=== PATIENT | female | born 1990 | race African-American/Black ===

== ENCOUNTER 2017-09-29 13:10 | Emergency (ER) | payer SELFPAY ==
[2017-09-29 13:22] VITALS: BP 133/87
[2017-09-29] MEDS ORDERED: Sodium Chloride 0.9% 1,000 ML IV ONE (13:35)
[2017-09-29] MEDS ORDERED: Ondansetron 4 MG/2 ML SDV IVPUSH ONE ×2 (13:35→18:29)
--- NOTE | 2017-09-29 13:43 | EDM.PDOC ---
ED HPI GENERAL MEDICAL PROBLEM - General Chief Complaint: Gastrointestinal Problem Stated Complaint: VOMITING X 2HRS Time Seen by Provider: 09/29/17 13:26 Source of Information: Reports: Patient History Limitations: Reports: No Limitations - History of Present Illness INITIAL COMMENTS - FREE TEXT/NARRATIVE: The patient states that she developed vomiting and watery diarrhea around 10:30 this morning. She is now dry heaving. She complains of abdominal cramps. No headache. No recent fever. No recent spoiled food. No similarly ill contacts. No recent travel. No recent antibiotics. No prior similar symptoms. The patient did not try any home medications or remedies prior to coming to the ED. The patient does not have a PCP. Chest Pain Score (Numeric/FACES): 9 - Related Data Allergies Allergy/AdvReac Type Severity Reaction Status Date / Time No Known Allergies Allergy Verified 11/07/15 02:19 Home Meds: Home Meds Ondansetron [Zofran ODT] 1 tab PO Q8H PRN #10 tab.dis 09/29/17 [Rx] Past Medical History Gastrointestinal History: Reports: Helicobacter Pylori [employer] History: Reports: Endocrine/Metabolic History: Reports: Obesity/BMI 30+ Hematologic History: Reports: Other (See Below) (Sickle cell trait) - Infectious Disease History Infectious Disease History: Reports: Chicken Pox - Past Surgical History GI Surgical History: Reports: Appendectomy Female Surgical History: Reports: Section (x 1) Social & Family History - Family History HEENT: Reports: Epistaxis Other HEENT Family History: brother OBGYN: Reports: Psychiatric: Reports: ADHD Other Psychiatric Family History: sister Hematologic: Reports: Sickle Cell Anemia Other Hematologic Family History: sickle cell - Tobacco Use Smoking Status *Q: Current Every Day Smoker Years of Tobacco use: 3 Packs/Tins Daily: 0.4 - Caffeine Use Caffeine Use: Reports: Energy Drinks, Soda - Alcohol Use Alcohol Use History: Yes Days Per Week of Alcohol Use: 1 Number of Drinks Per Day: 0 Total Drinks Per Week: 0 Alcohol Use Frequency: Socially - Recreational Drug Use Recreational Drug Use: No - Living Situation & Occupation Living situation: Reports: Single, with Significant Other, with Family (2 kids) Occupation: Employed ([employer]) ED ROS GENERAL - Review of Systems Review Of Systems: ROS reveals no pertinent complaints other than HPI. ED EXAM, GI/ABD - Physical Exam Exam: See Below Exam Limited By: No Limitations General Appearance: Alert, WD/WN, Mild Distress (dry heaving, hyperventilating) Eyes: Bilateral: Normal Appearance, EOMI Ears: Normal External Exam, Hearing Grossly Normal Nose: Normal Inspection, No Blood Throat/Mouth: Normal Inspection, Normal Lips, Normal Voice, No Airway Compromise Head: Atraumatic, Normocephalic Neck: Normal Inspection, Full Range of Motion Respiratory/Chest: No Respiratory Distress, Lungs Clear, Normal Breath Sounds, No Accessory Muscle Use Cardiovascular: Normal Peripheral Pulses, Regular Rate, Rhythm, No Edema, No Gallop, No JVD, No Murmur, No Rub GI/Abdominal Exam: Soft, No Organomegaly, No Distention, No Abnormal Bruit, No Mass, Tender (mild, generalized, with the greatest tenderness in the right upper quadrant), Other (Obese) (Female) Exam: Deferred Rectal (Female) Exam: Deferred Back Exam: Normal Inspection, Full Range of Motion. No: CVA Tenderness (L), CVA Tenderness (R) Extremities: Normal Inspection, Normal Range of Motion, No Pedal Edema, Normal Capillary Refill Neurological: Alert, Oriented, Normal Cognition, No Motor/Sensory Deficits Psychiatric: Normal Affect Skin Exam: Warm, Dry, Intact, Normal Color, No Rash Course - Vital Signs Last Recorded V/S: Last Vital Signs Temp 36.8 C 09/29/17 13:21 Pulse 107 H 09/29/17 13:21 Resp 20 09/29/17 13:21 BP 133/87 09/29/17 13:21 Pulse Ox 99 09/29/17 13:21 - Orders/Labs/Meds Orders: Active Orders 24 hr Category Date Time Status Abdomen Ltd [US] Stat Exams 09/29/17 14:26 Taken Abdomen Pelvis w Cont [CT] Stat Exams 09/29/17 16:06 Taken HCG QUALITATIVE,URINE [URCHEM] Stat Lab 09/29/17 14:30 Ordered UA W/MICROSCOPIC [URIN] Stat Lab 09/29/17 14:30 Ordered Labs: Laboratory Tests 09/29/17 09/29/17 09/29/17 Range/Units 13:40 13:40 14:30 WBC 9.32 (3.98-10.04) K/mm3 RBC 4.90 (3.98-5.22) M/mm3 Hgb 13.2 (11.2-15.7) gm/L Hct 39.2 (34.1-44.9) % MCV 80.0 (79.4-94.8) fl MCH 26.9 (25.6-32.2) pg MCHC 33.7 (32.2-35.5) g/dl RDW Std Deviation 41.4 (36.4-46.3) fL Plt Count 294 (182-369) K/mm3 MPV 9.7 (9.4-12.3) fl Neutrophils % (Manual) 90 H (40-60) % Band Neutrophils % 1 (0-10) % Lymphocytes % (Manual) 9 L (20-40) % Atypical Lymphs % 0 % Monocytes % (Manual) 0 L (2-10) % Eosinophils % (Manual) 0 L (0.7-5.8) % Basophils % (Manual) 0 L (0.1-1.2) Differential Comment See note Platelet Estimate Adequate RBC Morph Comment Normal Sodium 142 (136-145) mEq/L Potassium 3.9 (3.5-5.1) mEq/L Chloride 106 (98-107) mEq/L Carbon Dioxide 20 L (21-32) mEq/L Anion Gap 19.9 H (5-15) BUN 16 (7-18) mg/dL Creatinine 0.8 (0.55-1.02) mg/dL Est Cr Clr Drug Dosing 124.62 mL/min Estimated GFR (MDRD) > 60 (>60) mL/min BUN/Creatinine Ratio 20.0 H (14-18) Glucose 112 H (74-106) mg/dL Calcium 8.7 (8.5-10.1) mg/dL Total Bilirubin 0.6 (0.2-1.0) mg/dL AST 18 (15-37) U/L ALT 19 (14-59) U/L Alkaline Phosphatase 74 (46-116) U/L Total Protein 7.4 (6.4-8.2) g/dl Albumin 4.0 (3.4-5.0) g/dl Globulin 3.4 gm/dL Albumin/Globulin Ratio 1.2 (1-2) Lipase 111 (73-393) U/L Urine Color Tonie H (Yellow) Urine Appearance Slt cloudy H (Clear) Urine pH 6.0 (5.0-8.0) Ur Specific [place] 1.025 (1.005-1.030) Urine Protein 2+ H (Negative) Urine Glucose (UA) Negative (Negative) Urine Ketones 1+ H (Negative) Urine Occult Blood 3+ H (Negative) Urine Nitrite Negative (Negative) Urine Bilirubin Negative (Negative) Urine Urobilinogen 0.2 (0.2-1.0) Ur Leukocyte Esterase Trace H (Negative) Urine RBC >100 H (0-5) /hpf Urine WBC 5-10 H (0-5) /hpf Ur Epithelial Cells 0-5 (0-5) /hpf Urine Bacteria Rare (FEW) /hpf Urine Mucus Not seen (FEW) /hpf Urine Trichomonas Few Urine HCG, Qual (NEGATIVE) 09/29/17 Range/Units 14:30 WBC (3.98-10.04) K/mm3 RBC (3.98-5.22) M/mm3 Hgb (11.2-15.7) gm/L Hct (34.1-44.9) % MCV (79.4-94.8) fl MCH (25.6-32.2) pg MCHC (32.2-35.5) g/dl RDW Std Deviation (36.4-46.3) fL Plt Count (182-369) K/mm3 MPV (9.4-12.3) fl Neutrophils % (Manual) (40-60) % Band Neutrophils % (0-10) % Lymphocytes % (Manual) (20-40) % Atypical Lymphs % % Monocytes % (Manual) (2-10) % Eosinophils % (Manual) (0.7-5.8) % Basophils % (Manual) (0.1-1.2) Differential Comment Platelet Estimate RBC Morph Comment Sodium (136-145) mEq/L Potassium (3.5-5.1) mEq/L Chloride (98-107) mEq/L Carbon Dioxide (21-32) mEq/L Anion Gap (5-15) BUN (7-18) mg/dL Creatinine (0.55-1.02) mg/dL Est Cr Clr Drug Dosing mL/min Estimated GFR (MDRD) (>60) mL/min BUN/Creatinine Ratio (14-18) Glucose (74-106) mg/dL Calcium (8.5-10.1) mg/dL Total Bilirubin (0.2-1.0) mg/dL AST (15-37) U/L ALT (14-59) U/L Alkaline Phosphatase (46-116) U/L Total Protein (6.4-8.2) g/dl Albumin (3.4-5.0) g/dl Globulin gm/dL Albumin/Globulin Ratio (1-2) Lipase (73-393) U/L Urine Color (Yellow) Urine Appearance (Clear) Urine pH (5.0-8.0) Ur Specific [place] (1.005-1.030) Urine Protein (Negative) Urine Glucose (UA) (Negative) Urine Ketones (Negative) Urine Occult Blood (Negative) Urine Nitrite (Negative) Urine Bilirubin (Negative) Urine Urobilinogen (0.2-1.0) Ur Leukocyte Esterase (Negative) Urine RBC (0-5) /hpf Urine WBC (0-5) /hpf Ur Epithelial Cells (0-5) /hpf Urine Bacteria (FEW) /hpf Urine Mucus (FEW) /hpf Urine Trichomonas Urine HCG, Qual Negative (NEGATIVE) Meds: Medications Discontinued Medications Generic Name Dose Route Start Last Admin Trade Name Freq PRN Reason Stop Dose Admin Diatrizoate Meglum/Diatrizoate Sod 90 ml 09/29/17 17:12 09/29/17 17:27 Gastrografin 37% PO 09/29/17 17:13 90 ml ONETIME ONE Administration Hydromorphone HCl 1 mg 09/29/17 14:23 09/29/17 14:32 Dilaudid IVPUSH 09/29/17 14:24 1 mg ONETIME STA Administration Hydromorphone HCl 1 mg 09/29/17 16:45 09/29/17 16:51 Dilaudid IVPUSH 09/29/17 16:46 1 mg ONETIME STA Administration Sodium Chloride 1,000 mls @ 999 mls/hr 09/29/17 13:35 09/29/17 13:45 Normal Saline IV 09/29/17 14:35 999 mls/hr ONETIME ONE Administration Iopamidol 125 ml 09/29/17 17:28 09/29/17 17:29 Isovue-300 (61%) IVPUSH 09/29/17 17:29 125 ml ONETIME ONE Administration Ondansetron HCl 4 mg 09/29/17 13:35 09/29/17 13:45 Zofran IVPUSH 09/29/17 13:36 4 mg ONETIME ONE Administration - Re-Assessments/Exams Free Text/Narrative Re-Assessment/Exam: 09/29/17 14:24 Examination of the patient's abdomen was initially limited, as the patient was sitting up and retching. Following 4 mg IV Zofran, the patient states that her nausea has resolved, however, she is still complaining of abdominal pain. I reexamined her abdomen, now that she is no longer retching. She has rare bowel sounds, and is tender primarily in the right upper quadrant. She has not yet provided a urine sample. I ordered IV Dilaudid for pain, and will order an ultrasound of the right upper quadrant to evaluate for evidence of cholecystitis. I am not going to order a CT scan of the abdomen and pelvis until I see her urine results and ultrasound results, if still needed. 09/29/17 15:05 The patient's urinalysis, collected by clean catch, demonstrates 3+ occult blood , > 100 RBCs, nitrate negative, trace leukocyte esterase, 5-10 WBCs, and rare bacteria. The patient is currently on her menstrual period. These results are not consistent with a UTI. 09/29/17 16:05 Ultrasound of the right upper quadrant is read by [facility] as "No acute findings." 09/29/17 16:06 I have ordered a CT scan of the abdomen and pelvis with oral and IV contrast. 09/29/17 17:55 CT of the abdomen and pelvis with oral and IV contrast is read by [facility] as "Mild thickening of the wall of the second portion of the duodenum is present consistent with duodenitis." 09/29/17 18:12 Test results discussed with the patient. The patient did not have a bowel movement during her entire ED visit. As above, the CT scan indicates the patient has duodenitis, but clinically, she has gastroenteritis, likely viral in etiology. I am recommending a prescription for Zofran and [id number] Imodium, should her diarrhea return. I will order a dose of IV Pepcid before her IV is removed, then recommend that she take one tablet daily. I will refer her to Dr. Noriega, should her symptoms persist, who can then refer the patient for EGD if she feels it appropriate. Departure - Departure Time of Disposition: 18:13 Disposition: Home, Self-Care 01 Condition: Fair Clinical Impression: Gastroenteritis, Duodenitis - Discharge Information Referrals: PCP,None [Primary Care Provider] - Ashley Noriega MD [Physician] - Forms: ED Department Discharge Additional Instructions: You were seen in the emergency room for vomiting, watery diarrhea, and abdominal cramps. Workup in the ER included blood work, a urinalysis, a urine test, an ultrasound of the upper right part of her abdomen, and a CT scan of your abdomen and pelvis with oral and IV contrast. Your entire workup was unremarkable, and does not entirely explain the cause of your symptoms, which are MOST LIKELY due to gastroenteritis, likely viral in etiology. Unfortunately, there are no medicines to get rid of viral gastroenteritis - it will have to run its course, however, there are medicines that can help treat your symptoms. A prescription for the anti-nausea medicine [facility]. Dissolve 1 tablet on your tongue up to every 8 hours, as needed for nausea/vomiting. If your diarrhea returns, take 2 tablets of [id number]-vyziqim Imodium (loperamide ) upfront, then 1 tablet after each loose bowel movement, to a maximum of 8 tablets within a 24-hour period. We also recommend that you take one tablet of the qqgt-szk-whjjrwd antacid medicine Pepcid (famotidine) either once or twice a day. Stay well hydrated. If your symptoms persist, please follow-up with Dr. Ashley Noriega as a primary care physician. If any other problems, please do not hesitate to return to the ER. - My Orders Last 24 Hours: My Active Orders 09/29/17 14:26 Abdomen Ltd [US] Stat 09/29/17 14:30 HCG QUALITATIVE,URINE [URCHEM] Stat UA W/MICROSCOPIC [URIN] Stat 09/29/17 16:06 Abdomen Pelvis w Cont [CT] Stat - Assessment/Plan Last 24 Hours: My Active Orders 09/29/17 14:26 Abdomen Ltd [US] Stat 09/29/17 14:30 HCG QUALITATIVE,URINE [URCHEM] Stat UA W/MICROSCOPIC [URIN] Stat 09/29/17 16:06 Abdomen Pelvis w Cont [CT] Stat
[2017-09-29] MEDS ORDERED: HYDROmorphone 0.5 MG/0.5 ML SYRINGE IVPUSH STA ×2 (14:23→16:45)
[2017-09-29] MEDS ORDERED: Diatrizoate Meglumine/Diatrizoate Sodium 37% 120 ML Bottle PO ONE (17:12)
[2017-09-29] MEDS ORDERED: Iopamidol 755 Mg/ML 100 ML Bottle IVPUSH ONE (17:12)
[2017-09-29] MEDS ORDERED: Iopamidol 612 MG/ML 150 ML Bottle IVPUSH ONE (17:28)
[2017-09-29] MEDS ORDERED: Famotidine 20 MG/2 ML SDV IVPUSH ONE (18:18)
--- NOTE | 2017-09-30 12:53 | CT ---
CT abdomen and pelvis Technique: Multiple axial sections were obtained from above the dome of the diaphragm inferiorly through the pubic symphysis. Intravenous and oral contrast was utilized. Delayed images were also obtained through the bladder. Comparison: Previous right upper quadrant abdominal ultrasound performed on the same day (3:02 PM) Findings: Visualized lung bases show nothing acute. Liver shows no focal parenchymal abnormality. Gallbladder contains no calcified gallstones. Spleen appears within normal limits. Adrenal glands show no nodule. Kidneys show symmetric contrast enhancement without hydronephrosis or mass. Pancreas is within normal limits. Mild wall thickening is seen within portions of the duodenum. No surrounding inflammatory change is seen around the duodenum. Aorta shows no aneurysmal dilatation. No retroperitoneal adenopathy or mesenteric abnormalities are seen. No pelvic mass or adenopathy is seen. Delayed images show contrast within the distal ureters and within the bladder. Bone window settings were reviewed which show no acute osseous abnormality. Surgical clips are seen off the tip of the cecum most likely from prior appendicitis as the appendix is not seen. No bowel dilatation is seen. No free fluid or inflammatory change is seen. Impression: 1. Bowel wall thickening within portions of the duodenum. This may relate to under-distention versus duodenitis. Please correlate with the patient's symptoms. 2. Appearance of prior appendectomy. 3. No additional abnormality is identified on CT study of the abdomen and pelvis. Diagnostic code #3 I agree with preliminary report from [facility], finalized at 09/29/17, 6:39 PM Central Time
--- NOTE | 2017-09-30 12:53 | US ---
Limited abdominal ultrasound: Multiple real-time images of the upper right abdomen were obtained. Comparison: Previous right upper quadrant abdominal ultrasound of 04/20/13. Technologist's note: Patient has difficulty following breathing instructions to holding breath Liver shows no focal parenchymal abnormality. Pancreas appears within normal limits. Gallbladder contains no shadowing gallstones. No gallbladder wall thickening or biliary duct dilatation is seen. Right kidney shows no hydronephrosis or mass and has a length of 12.4 cm. Inferior vena cava is patent. Portal vein shows normal hepatopedal flow. Impression: 1. No abnormality is appreciated on the right upper quadrant abdominal ultrasound. No significant change from previous study is seen. Diagnostic code #1 I agree with preliminary report from [facility], finalized at 09/29/17, 5:02 PM Central Time
== END 2017-09-29 18:30 | disposition home or self-care (01) ==
LOC: JD.ED 13:10
DX: K52.9 Noninfective gastroenteritis and colitis, unspecified (principal); K29.80 Duodenitis without bleeding; E66.9 Obesity, unspecified; F17.210 Nicotine dependence, cigarettes, uncomplicated
CPT/HCPCS: 36415; 74177; 76705; 80053; 81001; 81025; 83690; 85025; 96361; 96374; 96375; 96376; 99284; J1170; J2405; J7040; Q9963; Q9967

== ENCOUNTER 2018-02-02 12:10 | Emergency (ER) | payer MEDICAID, OTHER ==
[2018-02-02] MEDS ORDERED: Sodium Chloride 0.9% 10 ML Syringe FLUSH PRN (12:46)
[2018-02-02] MEDS ORDERED: Sodium Chloride 0.9% 1,000 ML IV STA (12:46)
[2018-02-02] MEDS ORDERED: Ketorolac 30 MG/ML SDV IVPUSH ONE (12:47)
--- NOTE | 2018-02-02 14:10 | EDM.PDOC ---
ED HPI GENERAL MEDICAL PROBLEM - General Chief Complaint: Genitourinary Problem Stated Complaint: FEVER & BODY PAIN Time Seen by Provider: 02/02/18 12:26 Source of Information: Reports: Patient History Limitations: Reports: No Limitations - History of Present Illness INITIAL COMMENTS - FREE TEXT/NARRATIVE: The patient presents with fever, chills, body aches, and dysuria for 2 days. She has no nausea or vomiting. She has a slight cough. She has had bladder infections before and she did have a blood infection 2 years ago that required admission and IV antibiotics. She has no abdominal pain but she does have some back pain. Onset: Gradual Duration: Day(s): (2) Location: Reports: Back, Generalized Quality: Reports: Ache Severity: Moderate Improves with: Reports: None Worsens with: Reports: None Associated Symptoms: Reports: Cough, Fever/Chills. 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 general body aches Pain Score (Numeric/FACES): 6 - Related Data Allergies Allergy/AdvReac Type Severity Reaction Status Date / Time No Known Allergies Allergy Verified 02/02/18 12:31 Home Meds: Home Meds Cephalexin [Keflex] 500 mg PO TID #30 capsule 02/02/18 [Rx] Past Medical History Cardiovascular History: Reports: None Respiratory History: Reports: None Gastrointestinal History: Reports: Helicobacter Pylori Other Gastrointestinal History: H-pylori Genitourinary History: Reports: None 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: Musculoskeletal History: Reports: Back Pain, Chronic Other Musculoskeletal History: with new with this one Neurological History: Reports: None Psychiatric History: Reports: None Endocrine/Metabolic History: Reports: Obesity/BMI 30+ Hematologic History: Reports: Other (See Below) (Sickle cell trait) Immunologic History: Reports: None Dermatologic History: Reports: None - Infectious Disease History Infectious Disease History: Reports: Chicken Pox - Past Surgical History GI Surgical History: Reports: Appendectomy Female Surgical History: Reports: Section Social & Family History - Family History HEENT: Reports: Epistaxis Other HEENT Family History: brother OBGYN: Reports: Psychiatric: Reports: ADHD Other Psychiatric Family History: sister Hematologic: Reports: Sickle Cell Anemia Other Hematologic Family History: sickle cell - Tobacco Use Smoking Status *Q: Current Every Day Smoker Years of Tobacco use: 5 Packs/Tins Daily: 0.1 - Caffeine Use Caffeine Use: Reports: Soda, Tea - Recreational Drug Use Recreational Drug Use: No - Living Situation & Occupation Living situation: Reports: Single, with Significant Other, with Family (2 kids) Occupation: Employed ([employer]) ED ROS GENERAL - Review of Systems Review Of Systems: See Below Constitutional: Reports: Fever, Chills HEENT: Reports: No Symptoms Respiratory: Reports: Cough. Denies: Shortness of Breath Cardiovascular: Reports: No Symptoms Endocrine: Reports: No Symptoms GI/Abdominal: Denies: Abdominal Pain, Nausea, Vomiting : Reports: Flank Pain Musculoskeletal: Reports: Back Pain ED EXAM, RENAL/ - Physical Exam Exam: See Below Exam Limited By: No Limitations General Appearance: Alert, No Apparent Distress Ears: Normal External Exam Nose: Normal Inspection Head: Atraumatic, Normocephalic Neck: Normal Inspection Respiratory/Chest: No Respiratory Distress, Lungs Clear, Normal Breath Sounds Cardiovascular: Regular Rate, Rhythm, No Edema, No Murmur GI/Abdominal: Soft, Non-Tender, No Organomegaly, No Mass Back Exam: Normal Inspection Extremities: Normal Inspection Course - Vital Signs Last Recorded V/S: Last Vital Signs Temp 100.5 F 02/02/18 12:20 Pulse 94 02/02/18 12:20 Resp 18 02/02/18 12:20 BP 129/80 02/02/18 12:20 Pulse Ox 100 02/02/18 12:20 - Orders/Labs/Meds Orders: Active Orders 24 hr Category Date Time Status Peripheral IV Care [RC] . DIRECTED Care 02/02/18 12:46 Active CULTURE BLOOD [BC] Stat Lab 02/02/18 13:13 Received CULTURE BLOOD [BC] Stat Lab 02/02/18 13:13 Received CULTURE URINE [RM] Stat Lab 02/02/18 13:25 Received UA W/MICROSCOPIC [URIN] Stat Lab 02/02/18 13:25 Ordered Sodium Chloride 0.9% [Saline Flush] Med 02/02/18 12:46 Active 10 ml FLUSH ASDIRECTED PRN cefTRIAXone [Rocephin] 2 gm Med 02/02/18 14:14 Active Sodium Chloride 0.9% [Normal Saline] 100 ml IV ONETIME Blood Culture x2 Reflex Set [OM.PC] Stat Oth 02/02/18 12:46 Ordered Peripheral IV Insertion Adult [OM.PC] Stat Oth 02/02/18 12:46 Ordered Medication Orders Ceftriaxone Sodium 2 gm/ (Sodium Chloride) 100 mls @ 100 mls/hr IV ONETIME ONE Stop: 02/02/18 15:13 Last Admin: 02/02/18 14:20 Dose: 100 mls/hr Sodium Chloride (Saline Flush) 10 ml FLUSH ASDIRECTED PRN PRN Reason: Keep Vein Open Last Admin: 02/02/18 13:11 Dose: 10 ml Labs: Laboratory Tests 02/02/18 02/02/18 02/02/18 Range/Units 13:07 13:07 13:07 WBC 16.72 H (3.98-10.04) K/mm3 RBC 4.42 (3.98-5.22) M/mm3 Hgb 12.1 (11.2-15.7) gm/L Hct 36.2 (34.1-44.9) % MCV 81.9 (79.4-94.8) fl MCH 27.4 (25.6-32.2) pg MCHC 33.4 (32.2-35.5) g/dl RDW Std Deviation 40.3 (36.4-46.3) fL Plt Count 253 (182-369) K/mm3 MPV 9.3 L (9.4-12.3) fl Neut % (Auto) 82.1 H (34.0-71.1) % Lymph % (Auto) 10.5 L (19.3-51.7) % [place] % (Auto) 6.7 (4.7-12.5) % Eos % (Auto) 0.3 L (0.7-5.8) Baso % (Auto) 0.2 (0.1-1.2) % Neut # (Auto) 13.73 H (1.56-6.13) K/mm3 Lymph # (Auto) 1.75 (1.18-3.74) K/mm3 [place] # (Auto) 1.12 H (0.24-0.36) K/mm3 Eos # (Auto) 0.05 (0.04-0.36) K/mm3 Baso # (Auto) 0.03 (0.01-0.08) K/mm3 Sodium 137 (136-145) mEq/L Potassium 3.5 (3.5-5.1) mEq/L Chloride 102 (98-107) mEq/L Carbon Dioxide 26 (21-32) mEq/L Anion Gap 12.5 (5-15) BUN 9 (7-18) mg/dL Creatinine 1.0 (0.55-1.02) mg/dL Est Cr Clr Drug Dosing 98.80 mL/min Estimated GFR (MDRD) > 60 (>60) mL/min BUN/Creatinine Ratio 9.0 L (14-18) Glucose 106 (74-106) mg/dL Calcium 8.8 (8.5-10.1) mg/dL Total Bilirubin 1.0 (0.2-1.0) mg/dL AST 21 (15-37) U/L ALT 26 (14-59) U/L Alkaline Phosphatase 89 (46-116) U/L Total Protein 7.5 (6.4-8.2) g/dl Albumin 3.4 (3.4-5.0) g/dl Globulin 4.1 gm/dL Albumin/Globulin Ratio 0.8 L (1-2) HCG, Qual Negative (NEGATIVE) Urine Color (Yellow) Urine Appearance (Clear) Urine pH (5.0-8.0) Ur Specific [place] (1.005-1.030) Urine Protein (Negative) Urine Glucose (UA) (Negative) Urine Ketones (Negative) Urine Occult Blood (Negative) Urine Nitrite (Negative) Urine Bilirubin (Negative) Urine Urobilinogen (0.2-1.0) Ur Leukocyte Esterase (Negative) Urine RBC (0-5) /hpf Urine WBC (0-5) /hpf Ur Epithelial Cells (0-5) /hpf Ur Renal Epithelial Cell (0-5) /hpf Urine Bacteria (FEW) /hpf Urine Mucus (FEW) /hpf 02/02/ Range/Units 13:25 WBC (3.98-10.04) K/mm3 RBC (3.98-5.22) M/mm3 Hgb (11.2-15.7) gm/L Hct (34.1-44.9) % MCV (79.4-94.8) fl MCH (25.6-32.2) pg MCHC (32.2-35.5) g/dl RDW Std Deviation (36.4-46.3) fL Plt Count (182-369) K/mm3 MPV (9.4-12.3) fl Neut % (Auto) (34.0-71.1) % Lymph % (Auto) (19.3-51.7) % [place] % (Auto) (4.7-12.5) % Eos % (Auto) (0.7-5.8) Baso % (Auto) (0.1-1.2) % Neut # (Auto) (1.56-6.13) K/mm3 Lymph # (Auto) (1.18-3.74) K/mm3 [place] # (Auto) (0.24-0.36) K/mm3 Eos # (Auto) (0.04-0.36) K/mm3 Baso # (Auto) (0.01-0.08) K/mm3 Sodium (136-145) mEq/L Potassium (3.5-5.1) mEq/L Chloride (98-107) mEq/L Carbon Dioxide (21-32) mEq/L Anion Gap (5-15) BUN (7-18) mg/dL Creatinine (0.55-1.02) mg/dL Est Cr Clr Drug Dosing mL/min Estimated GFR (MDRD) (>60) mL/min BUN/Creatinine Ratio (14-18) Glucose (74-106) mg/dL Calcium (8.5-10.1) mg/dL Total Bilirubin (0.2-1.0) mg/dL AST (15-37) U/L ALT (14-59) U/L Alkaline Phosphatase (46-116) U/L Total Protein (6.4-8.2) g/dl Albumin (3.4-5.0) g/dl Globulin gm/dL Albumin/Globulin Ratio (1-2) HCG, Qual (NEGATIVE) Urine Color Yellow (Yellow) Urine Appearance Cloudy H (Clear) Urine pH 6.0 (5.0-8.0) Ur Specific [place] 1.020 (1.005-1.030) Urine Protein 2+ H (Negative) Urine Glucose (UA) Negative (Negative) Urine Ketones Negative (Negative) Urine Occult Blood 2+ H (Negative) Urine Nitrite Positive H (Negative) Urine Bilirubin Negative (Negative) Urine Urobilinogen 0.2 (0.2-1.0) Ur Leukocyte Esterase 1+ H (Negative) Urine RBC 10-20 H (0-5) /hpf Urine WBC 50-75 H (0-5) /hpf Ur Epithelial Cells 5-10 H (0-5) /hpf Ur Renal Epithelial Cell 0-5 (0-5) /hpf Urine Bacteria Many H (FEW) /hpf Urine Mucus Not seen (FEW) /hpf Meds: Medications Generic Name Dose Route Start Last Admin Trade Name Freq PRN Reason Stop Dose Admin Ceftriaxone Sodium 2 gm/ 100 mls @ 100 mls/hr 02/02/18 14:14 02/02/18 14:20 Sodium Chloride IV 02/02/18 15:13 100 mls/hr ONETIME ONE Administration Sodium Chloride 10 ml 02/02/18 12:46 02/02/18 13:11 Saline Flush FLUSH 10 ml ASDIRECTED PRN Administration Keep Vein Open Discontinued Medications Generic Name Dose Route Start Last Admin Trade Name Freq PRN Reason Stop Dose Admin Sodium Chloride 1,000 mls @ 1,000 mls/hr 02/02/18 12:46 02/02/18 13:11 Normal Saline IV 02/02/18 13:45 1,000 mls/hr .BOLUS STA Administration Ketorolac Tromethamine 30 mg 02/02/18 12:47 02/02/18 13:11 Toradol IVPUSH 02/02/18 12:48 30 mg ONETIME ONE Administration - Re-Assessments/Exams Free Text/Narrative Re-Assessment/Exam: 02/02/18 14:11 I ordered an IV NS 1L bolus, toradol 30mg IV, labs and UA. Her WBC was elevated at 16.72. Her HCG is negative. Her CMP looks good. Her UA shows a UTI. 02/02/18 14:39 She also has pyelonephritis. She can keep down meds so I feel it is safe to discharge her home. I have ordered rocehin 2 grams IV before she goes. Departure - Departure Time of Disposition: 14:40 Disposition: Home, Self-Care 01 Condition: Good Clinical Impression: Pyelonephritis UTI (urinary tract infection) Qualifiers: Urinary tract infection type: acute cystitis Hematuria presence: without hematuria Qualified Code(s): N30.00 - Acute cystitis without hematuria - Discharge Information *PRESCRIPTION DRUG MONITORING PROGRAM REVIEWED*: No *COPY OF PRESCRIPTION DRUG MONITORING REPORT IN PATIENT LEAH: No Prescriptions: Cephalexin [Keflex] 500 mg PO TID #30 capsule Referrals: PCP,None [Primary Care Provider] - Mirtha Felipe, SETTLEMENT PROCESSOR [Nurse Practitioner] - 1 Week Forms: ED Department Discharge Additional Instructions: Drink plenty of fluid. Take keflex 500mg 3 times per day. Take motrin or tylenol for pain. Please return if you are worse. - My Orders Last 24 Hours: My Active Orders 02/02/18 12:46 Peripheral IV Care [RC] . DIRECTED Sodium Chloride 0.9% [Saline Flush] 10 ml FLUSH ASDIRECTED PRN Blood Culture x2 Reflex Set [OM.PC] Stat Peripheral IV Insertion Adult [OM.PC] Stat 02/02/18 13:13 CULTURE BLOOD [BC] Stat CULTURE BLOOD [BC] Stat 02/02/18 13:25 CULTURE URINE [RM] Stat UA W/MICROSCOPIC [URIN] Stat 02/02/18 14:14 cefTRIAXone [Rocephin] 2 gm Sodium Chloride 0.9% [Normal Saline] 100 ml IV ONETIME - Assessment/Plan Last 24 Hours: My Active Orders 02/02/18 12:46 Peripheral IV Care [RC] . DIRECTED Sodium Chloride 0.9% [Saline Flush] 10 ml FLUSH ASDIRECTED PRN Blood Culture x2 Reflex Set [OM.PC] Stat Peripheral IV Insertion Adult [OM.PC] Stat 02/02/18 13:13 CULTURE BLOOD [BC] Stat CULTURE BLOOD [BC] Stat 02/02/18 13:25 CULTURE URINE [RM] Stat UA W/MICROSCOPIC [URIN] Stat 02/02/18 14:14 cefTRIAXone [Rocephin] 2 gm Sodium Chloride 0.9% [Normal Saline] 100 ml IV ONETIME
[2018-02-02] MEDS ORDERED: cefTRIAXone 2 GM in Sodium Chloride 0.9% 100 ML IV ONE (14:14)
[2018-02-02 15:32] VITALS: BP 124/76
== END 2018-02-02 15:30 | disposition home or self-care (01) ==
LOC: JD.ED 12:10
DX: N30.00 Acute cystitis without hematuria (principal); B96.20 Unspecified Escherichia coli [E. coli] as the cause of diseases classified elsewhere; N12 Tubulo-interstitial nephritis, not specified as acute or chronic; F17.210 Nicotine dependence, cigarettes, uncomplicated
CPT/HCPCS: 36415; 80053; 81001; 84703; 85025; 87040; 87086; 87088; 87186; 96361; 96365; 96375; 99284; J0696; J1885; J7030; J7040; J7050

== ENCOUNTER 2018-02-03 10:54 | Inpatient (IN) | payer MEDICAID, OTHER ==
--- NOTE | 2018-02-03 11:59 | PCM.HP ---
H&P History of Present Illness - General Date of Service: 02/03/18 Admit Problem/Dx: Admission Diagnosis/Problem Admission Diagnosis/Problem Pyelonephritis Source of Information: Patient, Old Records, Provider, RN Notes Reviewed History Limitations: Reports: No Limitations - History of Present Illness Initial Comments - Free Text/Narative: This is a 27 yo female with past medical hx/o H. pylori infection, chronic back pain, history of sickle cell trait, and history of obesity who comes seen for inpatient treatment of Bacteremia. She was initially seen yesterday at the emergency department for multiple complaints of fever, chills, body aches, and dysuria for 2 days and was diagnosed with pyelonephritis. She was discharged home with oral antibiotic. Unfortunately, she did not do well. Her urine and blood culture both came back positive for gram-negative mikael. Patient was called back from ED for inpatient treatment and she agreed to come in for medical management of bactermeia from pyelonephritis. She is full code. 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: Musculoskeletal History: Reports: Back Pain, Chronic Other Musculoskeletal History: with new with this one Neurological History: Reports: None Psychiatric History: Reports: None Endocrine/Metabolic History: Reports: Obesity/BMI 30+ Hematologic History: Reports: Other (See Below) (Sickle cell trait) Immunologic History: Reports: None Dermatologic History: Reports: None - Infectious Disease History Infectious Disease History: Reports: Chicken Pox - Past Surgical History GI Surgical History: Reports: Appendectomy Female Surgical History: Reports: Section Social & Family History - Family History HEENT: Reports: Epistaxis Other HEENT Family History: brother OBGYN: Reports: Psychiatric: Reports: ADHD Other Psychiatric Family History: sister Hematologic: Reports: Sickle Cell Anemia Other Hematologic Family History: sickle cell - Tobacco Use Smoking Status *Q: Current Every Day Smoker Years of Tobacco use: 5 Packs/Tins Daily: 0.1 - Caffeine Use Caffeine Use: Reports: Soda - Recreational Drug Use Recreational Drug Use: No - Living Situation & Occupation Living situation: Reports: Single, with Significant Other, with Family (2 kids) Occupation: Employed ([employer]) H&P Review of Systems - Review of Systems: Review Of Systems: ROS reveals no pertinent complaints other than HPI. General: Reports: Night Sweats. Denies: Fever, Chills, Malaise, Weakness, Fatigue HEENT: Reports: No Symptoms Pulmonary: Denies: Shortness of Breath, Wheezing, Pleuritic Chest Pain Cardiovascular: Denies: Chest Pain, Dyspnea on Exertion, Lightheadedness Gastrointestinal: Reports: Constipation. Denies: Abdominal Pain, Nausea, Vomiting Genitourinary: Reports: No Symptoms Musculoskeletal: Reports: Back Pain Skin: Denies: Jaundice, Pallor, Diaphoresis, Bruising, Pruritis, Rash Psychiatric: Denies: Depression, Anxiety, Agitation, Hallucinations Neurological: Denies: Confusion, Difficulty Walking, Weakness, Gait Disturbance Hematologic/Lymphatic: Reports: No Symptoms Immunologic: Reports: No Symptoms Exam - Exam Exam: See Below - Vital Signs Vital Signs: Last Vital Signs Temp 36.1 C 02/03/18 10:59 Pulse 84 02/03/18 10:59 Resp 18 02/03/18 10:59 BP 135/72 02/03/18 10:59 Pulse Ox 100 02/03/18 10:59 Weight: 85.729 kg - Exam General: Alert, Oriented, Cooperative, Lethargic. No: Mild Distress HEENT: Conjunctiva Clear, EACs Clear, Hearing Intact, Mucosa Moist & [place], Nares Patent, Normal Nasal Septum, Posterior Pharynx Clear, Pupils Equal, Pupils Reactive, Abnormal Pupils Neck: Supple, Trachea Midline, +2 Carotid Pulse wo Bruit, Full Range of Motion Lungs: Clear to Auscultation, Normal Respiratory Effort Cardiovascular: Regular Rate, Regular Rhythm GI/Abdominal Exam: Normal Bowel Sounds, Soft, Non-Tender, No Organomegaly, No Distention, No Abnormal Bruit (Female) Exam: Deferred Rectal (Female) Exam: Deferred Back Exam: Normal Inspection, Full Range of Motion, CVA Tenderness (L), CVA Tenderness (R), Vertebral Tenderness Extremities: Normal Inspection, Non-Tender, No Pedal Edema Peripheral Pulses: 3+: Posterior Tibial (L), Posterior Tibial (R), Dorsalis Pedis (L), Dorsalis Pedis (R) Skin: Warm, Dry, Intact Neuro Extensive - Mental Status: Oriented x3, Normal Cognition, Memory Intact Neuro Extensive - Motor, Sensory, Reflexes: CN II-XII Intact, Normal Gait Psychiatric: Alert, Normal Affect, Normal Mood - Patient Data Result Diagrams: 02/04/18 05:39 02/04/18 05:39 Problem List Initiated/Reviewed/Updated: Yes Orders Last 24hrs: Active Orders 24 hr Category Date Time Status Admission Status [Patient Status] [ADT] Routine ADT 02/03/18 11:05 Active Assessment/Plan Comment:: Assessment/Plan: Acute: Bacteremia - 2/2 GNR (likely E. coli by hx/o in 2015) form Pyelonephritis - Carries a hx/o UTI 2 years after with her daughter - She denies hx/o recurrent UTI or STIs - Her symptom started 4 days ago; last sexual contact was 5 days ago - She was seen in ED yesterday and was discharged with Keflex - Still did not feel good so she came back to ED for further eval - Her blood culture drawn yesterday came back pos for GNR - IV Levaquin 500 mg Daily first dose now with probiotic - Repeat blood culture in the next 24 hrs Pyelonephritis 2/2 GNR - Likely E. coli based on previous hx - Developed after sexual encounter; possible partner was not clean - She is now on IV Levaquin for antibiotic treatment Chronic: Hx/o H. pylori infection, chronic back pain, history of sickle cell trait, and history of obesity Plan: Admit to [facility] with Tele Hold Home Oral Abx Routine AM Labs GI/DVT PPx: H2B and Lovenox SubQ SW/CM for d/c planning Code status: 1
[2018-02-03] MEDS ORDERED: Temazepam 15 MG Cap PO PRN (12:00)
[2018-02-03] MEDS ORDERED: Ondansetron 4 MG/2 ML SDV IV PRN (12:00)
[2018-02-03] MEDS ORDERED: hydrALAZINE 20 MG/ML SDV IVPUSH PRN (12:00)
[2018-02-03] MEDS ORDERED: Docusate Sodium 100 MG Cap PO PRN (12:00)
[2018-02-03] MEDS ORDERED: Metoprolol Tartrate 5 MG/5 ML SDV IVPUSH PRN (12:00)
[2018-02-03] MEDS ORDERED: Polyethylene Glycol 3350 Powder 17 GM Packet PO PRN (12:00)
[2018-02-03] MEDS ORDERED: LORazepam 2 MG/ML SDV IV PRN (12:00)
[2018-02-03] MEDS ORDERED: Acetaminophen 325 MG Tab PO PRN (12:00)
[2018-02-03] MEDS ORDERED: Albuterol/Ipratropium 3.0-0.5 MG/3 ML Neb Soln NEB PRN (12:00)
[2018-02-03] MEDS ORDERED: Promethazine 12.5 MG in Sodium Chloride 0.9% 50 ML IV PRN (12:00)
[2018-02-03] MEDS ORDERED: Nicotine 21 MG/24 Hr Patch TRDERM PRN (12:00)
[2018-02-03] MEDS ORDERED: HYDROmorphone 0.5 MG/0.5 ML SYRINGE IVPUSH PRN (12:00)
[2018-02-03] MEDS: Sodium Chloride 0.9% 1,000 ML IV SCH ×2 (12:26→20:14)
[2018-02-03] MEDS: Acetaminophen/HYDROcodone 325-5 MG Tab PO PRN ×2 (12:27→17:15)
[2018-02-03] MEDS: Bisacodyl 5 MG Tab PO PRN (12:29)
[2018-02-03] MEDS ORDERED: Levofloxacin/Dextrose 5%-Water 500 MG in Premix Bag 1 BAG IV SCH (12:30)
[2018-02-03] MEDS ORDERED: diphenhydrAMINE 50 MG/ML SDV IVPUSH ONE (12:39)
[2018-02-03] MEDS ORDERED: Famotidine 20 MG/2 ML SDV IVPUSH ONE (12:39)
--- NOTE | 2018-02-03 12:47 | PCM.SN ---
- Free Text/Narrative Note: Patient developed hypersensitivity reaction after receiving intravenous Levaquin. We immediately stopped it and give her intravenous, H1B, H2B and steroids. We will switch her to Meropenem for antibiotic treatment and continue to monitor her skin reaction.
[2018-02-03] MEDS: methylPREDNISolone Sodium Succinate 40 MG/1 ML SDV IVPUSH SCH ×2 (12:58→21:08)
[2018-02-03] MEDS: Meropenem 500 MG in Sodium Chloride 0.9% 100 ML IV SCH ×2 (13:36→21:07)
[2018-02-03] MEDS ORDERED: Bisacodyl 10 MG Supp RECTAL ONE (13:52)
[2018-02-03] MEDS: Famotidine 20 MG/2 ML SDV IVPUSH SCH (21:10)
[2018-02-04] MEDS: Acetaminophen/HYDROcodone 325-5 MG Tab PO PRN ×4 (01:30→20:31)
[2018-02-04] MEDS: Sodium Chloride 0.9% 1,000 ML IV SCH ×3 (04:22→20:38)
[2018-02-04] MEDS: Meropenem 500 MG in Sodium Chloride 0.9% 100 ML IV SCH ×3 (04:33→20:25)
[2018-02-04] MEDS ORDERED: HYDROmorphone 0.5 MG/0.5 ML Syringe IVPUSH PRN (07:15)
[2018-02-04] MEDS: Enoxaparin 40 MG/0.4 ML Syringe SUBCUT SCH (08:28)
[2018-02-04] MEDS: Saccharomyces Boulardii (Probiotic) 250 MG Cap PO SCH (08:30)
[2018-02-04] MEDS: Famotidine 20 MG/2 ML SDV IVPUSH SCH (08:31)
--- NOTE | 2018-02-04 11:49 | PCM.PN ---
- General Info Date of Service: 02/04/18 Admission Dx/Problem (Free Text): Admission Diagnosis/Problem Admission Diagnosis/Problem Pyelonephritis Subjective Update: In to see Carlos. She is sitting up in bed. She reports some mild back pain, however she was just given pain meds for this. She has no other concerns. Discussed plan of care and course of treatment so far. Functional Status: Reports: Pain Controlled, Tolerating Diet, Ambulating, Urinating. Denies: New Symptoms - Review of Systems General: Reports: No Symptoms. Denies: Weakness, Fatigue, Malaise HEENT: Reports: No Symptoms. Denies: Sore Throat Pulmonary: Reports: No Symptoms. Denies: Shortness of Breath, Cough, Sputum, Wheezing Cardiovascular: Reports: Dyspnea on Exertion. Denies: Chest Pain, Palpitations , Edema Gastrointestinal: Reports: No Symptoms. Denies: Abdominal Pain, Constipation, Diarrhea, Nausea, Vomiting Genitourinary: Reports: Flank Pain (left). Denies: Dysuria, Frequency, Burning , Pain, Urgency Musculoskeletal: Reports: No Symptoms Skin: Reports: No Symptoms Neurological: Reports: No Symptoms Psychiatric: Reports: No Symptoms - Patient Data Vitals - Most Recent: Last Vital Signs Temp 97.0 F 02/04/18 08:39 Pulse 117 H 02/04/18 08:39 Resp 14 02/04/18 08:39 BP 110/71 02/04/18 08:39 Pulse Ox 100 02/04/18 08:39 Weight - Most Recent: 230 lb 5 oz I&O - Last 24 Hours: Intake & Output 02/03/18 02/04/18 02/04/18 22:59 06:59 14:59 Intake Total 1526 2853 120 Output Total 1000 2600 Balance 526 253 120 Lab Results Last 24 Hours: Laboratory Results - last 24 hr 02/04/18 02/04/18 Range/Units 05:39 05:39 WBC 10.24 H (3.98-10.04) K/mm3 RBC 3.93 L (3.98-5.22) M/mm3 Hgb 10.6 L (11.2-15.7) gm/L Hct 32.3 L (34.1-44.9) % MCV 82.2 (79.4-94.8) fl MCH 27.0 (25.6-32.2) pg MCHC 32.8 (32.2-35.5) g/dl RDW Std Deviation 40.2 (36.4-46.3) fL Plt Count 209 (182-369) K/mm3 MPV 10.6 (9.4-12.3) fl Neut % (Auto) 83.8 H (34.0-71.1) % Lymph % (Auto) 10.6 L (19.3-51.7) % [place] % (Auto) 5.4 (4.7-12.5) % Eos % (Auto) 0 L (0.7-5.8) Baso % (Auto) 0.0 L (0.1-1.2) % Neut # (Auto) 8.58 H (1.56-6.13) K/mm3 Lymph # (Auto) 1.09 L (1.18-3.74) K/mm3 [place] # (Auto) 0.55 H (0.24-0.36) K/mm3 Eos # (Auto) 0.00 L (0.04-0.36) K/mm3 Baso # (Auto) 0.00 L (0.01-0.08) K/mm3 Sodium 141 (136-145) mEq/L Potassium 4.0 (3.5-5.1) mEq/L Chloride 108 H (98-107) mEq/L Carbon Dioxide 23 (21-32) mEq/L Anion Gap 14.0 (5-15) BUN 11 (7-18) mg/dL Creatinine 0.8 (0.55-1.02) mg/dL Est Cr Clr Drug Dosing 123.51 mL/min Estimated GFR (MDRD) > 60 (>60) mL/min BUN/Creatinine Ratio 13.8 L (14-18) Glucose 122 H (74-106) mg/dL Calcium 8.7 (8.5-10.1) mg/dL Magnesium 2.0 (1.8-2.4) mg/dl C-Reactive Protein 17.2 H* (<1.0) mg/dL Med Orders - Current: Current Medications Acetaminophen (Tylenol) 650 mg PO Q4H PRN PRN Reason: Pain (Mild 1-3)/fever Hydrocodone Bitart/Acetaminophen ([place] 325-5 Mg) 1 tab PO Q4H PRN PRN Reason: Pain (moderate 4-6) Last Admin: 02/04/18 08:30 Dose: 1 tab Albuterol/Ipratropium (Duoneb 3.0-0.5 Mg/3 Ml) 3 ml NEB Q4H PRN PRN Reason: Shortness Of Breath/wheezing Bisacodyl (Dulcolax) 5 mg PO DAILY PRN PRN Reason: Constipation Last Admin: 02/03/18 12:29 Dose: 5 mg Docusate Sodium (Colace) 100 mg PO BID PRN PRN Reason: Constipation Enoxaparin Sodium (Lovenox) 40 mg SUBCUT DAILY [facility] Last Admin: 02/04/18 08:28 Dose: 40 mg Hydralazine HCl (Apresoline) 20 mg IVPUSH Q4H PRN PRN Reason: Hypertension Hydromorphone HCl (Dilaudid) 0.5 mg IVPUSH Q2H PRN PRN Reason: Pain (severe 7-10) Promethazine HCl 12.5 mg/ (Sodium Chloride) 50.5 mls @ 100 mls/hr IV Q6H PRN PRN Reason: Nausea/Vomiting Sodium Chloride (Normal Saline) 1,000 mls @ 125 mls/hr IV ASDIRECTED [facility] Last Admin: 02/04/18 04:22 Dose: 125 mls/hr Meropenem 500 mg/ Sodium (Chloride) 100 mls @ 200 mls/hr IV Q8H [facility] Last Admin: 02/04/18 04:33 Dose: 200 mls/hr Lorazepam (Ativan) 1 mg IV Q6H PRN PRN Reason: Anxiety Magnesium Sulfate (Pharmacy To Dose - Magnesium Replacement) 1 dose .XX ASDIRECTED [facility] Metoprolol Tartrate (Lopressor) 5 mg IVPUSH Q4H PRN PRN Reason: Tachycardia Miscellaneous Information (Remove Patch) 1 ea TRDERM DAILY [facility] Last Admin: 02/04/18 09:12 Dose: Not Given Nicotine (Habitrol) 21 mg TRDERM DAILY PRN PRN Reason: Nicotine Dependence Ondansetron HCl (Zofran) 4 mg IV Q6H PRN PRN Reason: Nausea/Vomiting Polyethylene Glycol (Miralax) 17 gm PO DAILY PRN PRN Reason: Constipation Last Admin: 02/04/18 08:28 Dose: 17 gm Potassium Chloride (Pharmacy To Dose - Potassium Replacement) 1 dose .XX ASDIRECTED [facility] Saccharomyces Boulardii (Florastor) 250 mg PO DAILY [facility] Last Admin: 02/04/18 08:30 Dose: 250 mg Senna/Docusate Sodium (Senna Plus) 1 tab PO BID PRN PRN Reason: Constipation Temazepam (Restoril) 15 mg PO BEDTIME PRN PRN Reason: Sleep Discontinued Medications Bisacodyl (Dulcolax) 10 mg RECTAL ONETIME ONE Stop: 02/03/18 13:53 Last Admin: 02/03/18 14:45 Dose: 10 mg Diphenhydramine HCl (Benadryl) 25 mg IVPUSH ONETIME ONE Stop: 02/03/18 12:40 Last Admin: 02/03/18 12:57 Dose: 25 mg Famotidine (Pepcid) 20 mg IVPUSH BID [facility] Stop: 02/04/18 09:01 Last Admin: 02/04/18 08:31 Dose: 20 mg Famotidine (Pepcid) 20 mg IVPUSH ONETIME ONE Stop: 02/03/18 12:40 Last Admin: 02/03/18 12:58 Dose: 20 mg Hydromorphone HCl (Dilaudid) 0.5 mg IVPUSH Q2H PRN PRN Reason: Pain (severe 7-10) Levofloxacin/Dextrose 500 mg/ (Premix) 100 mls @ 100 mls/hr IV Q24H [facility] Last Admin: 02/03/18 12:27 Dose: 100 mls/hr Methylprednisolone Sodium Succinate (Solu-Medrol) 40 mg IVPUSH BID [facility] Stop: 02/03/18 21:01 Last Admin: 02/03/18 21:08 Dose: 40 mg - Exam Quality Assessment: DVT Prophylaxis General: Alert, Oriented, Cooperative, No Acute Distress HEENT: Pupils Equal, Pupils Reactive, EOMI, Mucous Membr. Moist/[place] Neck: Supple, Trachea Midline, No JVD Lungs: Clear to Auscultation, Normal Respiratory Effort Cardiovascular: Regular Rate, Regular Rhythm GI/Abdominal Exam: Normal Bowel Sounds, Soft, Non-Tender, No Distention (Female) Exam: Deferred Back Exam: Normal Inspection, Full Range of Motion, CVA Tenderness (L). No: CVA Tenderness (R) Extremities: Normal Inspection, Normal Range of Motion, Non-Tender, No Pedal Edema, Normal Capillary Refill Peripheral Pulses: 2+: Radial (L), Radial (R), Posterior Tibial (L), Posterior Tibial (R), Dorsalis Pedis (L), Dorsalis Pedis (R) Skin: Warm, Dry, Intact Neurological: No New Focal Deficit Psy/Mental Status: Alert, Normal Affect, Normal Mood - Problem List & Annotations (1) Bacteremia SNOMED Code(s): 4656966 Code(s): R78.81 - BACTEREMIA Status: Acute Priority: High Current Visit : Yes (2) Pyelonephritis SNOMED Code(s): 47729159 Code(s): N12 - TUBULO-INTERSTITIAL NEPHRITIS, NOT SPCF ACUTE OR CHRONIC Status: Acute Priority: High Current Visit: Yes (3) UTI (urinary tract infection) SNOMED Code(s): 52904474 Code(s): N39.0 - URINARY TRACT INFECTION, SITE NOT SPECIFIED Status: Acute Priority: High Current Visit: Yes Qualifiers: Urinary tract infection type: acute cystitis Hematuria presence: without hematuria Qualified Code(s): N30.00 - Acute cystitis without hematuria - Problem List Review Problem List Initiated/Reviewed/Updated: Yes - Plan Plan:: Assessment/Plan: Acute: Bacteremia - 2/2 GNR (likely E. coli by hx/o in 2015) form Pyelonephritis - Carries a hx/o UTI 2 years after with her daughter - She denies hx/o recurrent UTI or STIs - Her symptom started 4 days ago; last sexual contact was 5 days ago - She was seen in ED yesterday and was discharged with Keflex - Still did not feel good so she came back to ED for further eval - Her blood culture drawn yesterday came back pos for GNR - IV Levaquin 500 mg Daily first dose now with probiotic -> stop levaquin - Repeat blood culture in the next 24 hrs Pyelonephritis 2/2 GNR - E. coli - [place] sensitive - Developed after sexual encounter; possible partner was not clean - Started levaquin -> developed reaction; start meropenem Levaquin associated hypersensitivity reaction - Developed after receiving dose of Levaquin - Given H1B, H2B, and steroids with good response - Will stop Levaquin and start meropenem-> add Levaquin to adverse reaction list. Chronic: Hx/o H. pylori infection chronic back pain history of sickle cell trait history of obesity Plan: Admit to [facility] with Tele Hold Home Oral Abx Routine AM Labs GI/DVT PPx: H2B and Lovenox SubQ SW/CM for d/c planning Code status: Full Code; PCP: None
[2018-02-04] MEDS: Bisacodyl 5 MG Tab PO PRN (20:25)
[2018-02-05] MEDS: Acetaminophen/HYDROcodone 325-5 MG Tab PO PRN ×4 (01:53→20:40)
[2018-02-05] MEDS: Meropenem 500 MG in Sodium Chloride 0.9% 100 ML IV SCH (04:15)
[2018-02-05] MEDS: Sodium Chloride 0.9% 1,000 ML IV SCH (04:57)
--- NOTE | 2018-02-05 07:52 | PCM.PN ---
- General Info Date of Service: 02/05/18 Admission Dx/Problem (Free Text): Admission Diagnosis/Problem Admission Diagnosis/Problem Pyelonephritis Subjective Update: In to see Carlos. She is sitting in bed. She has no concerns currently. Still having back pain but it is getting better. No nursing concerns. Her labs continue to look better. Repeat blood cultures were obtained today. Cultures show mach[place]-sensitive e coli. Will step down antibiotic to rocephin. Will D/C fluids. Likely discharge pending repeat cultures. Functional Status: Reports: Pain Controlled, Tolerating Diet, Ambulating, Urinating. Denies: New Symptoms - Review of Systems General: Reports: No Symptoms. Denies: Fever, Weakness, Fatigue, Malaise HEENT: Reports: No Symptoms. Denies: Sore Throat Pulmonary: Reports: No Symptoms. Denies: Shortness of Breath, Cough, Sputum Cardiovascular: Reports: Dyspnea on Exertion. Denies: Chest Pain, Palpitations , Lightheadedness Gastrointestinal: Reports: No Symptoms. Denies: Abdominal Pain, Constipation, Diarrhea, Nausea, Vomiting Genitourinary: Reports: No Symptoms. Denies: Dysuria, Frequency, Burning, Pain , Urgency Musculoskeletal: Reports: Back Pain (left CVA) Skin: Reports: No Symptoms Neurological: Reports: No Symptoms Psychiatric: Reports: No Symptoms - Patient Data Vitals - Most Recent: Last Vital Signs Temp 98.1 F 02/05/18 01:55 Pulse 54 L 02/05/18 01:55 Resp 18 02/05/18 01:55 BP 108/77 02/05/18 01:55 Pulse Ox 100 02/05/18 01:55 Weight - Most Recent: 240 lb 3 oz I&O - Last 24 Hours: Intake & Output 02/04/18 02/05/18 02/05/18 22:59 06:59 14:59 Intake Total 3000 5103 Output Total 1600 1400 Balance 1400 3703 Lab Results Last 24 Hours: Laboratory Results - last 24 hr 02/04/18 02/05/18 02/05/18 Range/Units 05:39 05:30 05:30 WBC 9.18 (3.98-10.04) K/mm3 RBC 3.65 L (3.98-5.22) M/mm3 Hgb 10.1 L (11.2-15.7) gm/L Hct 30.2 L (34.1-44.9) % MCV 82.7 (79.4-94.8) fl MCH 27.7 (25.6-32.2) pg MCHC 33.4 (32.2-35.5) g/dl RDW Std Deviation 40.1 (36.4-46.3) fL Plt Count 251 (182-369) K/mm3 MPV 9.8 (9.4-12.3) fl Neut % (Auto) 58.2 (34.0-71.1) % Lymph % (Auto) 31.6 (19.3-51.7) % [place] % (Auto) 8.8 (4.7-12.5) % Eos % (Auto) 0.9 (0.7-5.8) Baso % (Auto) 0.4 (0.1-1.2) % Neut # (Auto) 5.34 (1.56-6.13) K/mm3 Lymph # (Auto) 2.90 (1.18-3.74) K/mm3 [place] # (Auto) 0.81 H (0.24-0.36) K/mm3 Eos # (Auto) 0.08 (0.04-0.36) K/mm3 Baso # (Auto) 0.04 (0.01-0.08) K/mm3 Sodium 141 144 (136-145) mEq/L Potassium 4.0 3.6 (3.5-5.1) mEq/L Chloride 108 H 110 H (98-107) mEq/L Carbon Dioxide 23 27 (21-32) mEq/L Anion Gap 14.0 10.6 (5-15) BUN 11 11 (7-18) mg/dL Creatinine 0.8 0.9 (0.55-1.02) mg/dL Est Cr Clr Drug Dosing 123.51 109.78 mL/min Estimated GFR (MDRD) > 60 > 60 (>60) mL/min BUN/Creatinine Ratio 13.8 L 12.2 L (14-18) Glucose 122 H 86 (74-106) mg/dL Calcium 8.7 8.0 L (8.5-10.1) mg/dL Magnesium 2.0 1.8 (1.8-2.4) mg/dl C-Reactive Protein 17.2 H* 8.1 H* (<1.0) mg/dL Med Orders - Current: Current Medications Acetaminophen (Tylenol) 650 mg PO Q4H PRN PRN Reason: Pain (Mild 1-3)/fever Hydrocodone Bitart/Acetaminophen ([place] 325-5 Mg) 1 tab PO Q4H PRN PRN Reason: Pain (moderate 4-6) Last Admin: 02/05/18 07:39 Dose: 1 tab Albuterol/Ipratropium (Duoneb 3.0-0.5 Mg/3 Ml) 3 ml NEB Q4H PRN PRN Reason: Shortness Of Breath/wheezing Bisacodyl (Dulcolax) 5 mg PO DAILY PRN PRN Reason: Constipation Last Admin: 02/04/18 20:25 Dose: 5 mg Docusate Sodium (Colace) 100 mg PO BID PRN PRN Reason: Constipation Last Admin: 02/04/18 20:25 Dose: 100 mg Enoxaparin Sodium (Lovenox) 40 mg SUBCUT DAILY [facility] Last Admin: 02/04/18 08:28 Dose: 40 mg Hydralazine HCl (Apresoline) 20 mg IVPUSH Q4H PRN PRN Reason: Hypertension Hydromorphone HCl (Dilaudid) 0.5 mg IVPUSH Q2H PRN PRN Reason: Pain (severe 7-10) Last Admin: 02/04/18 18:56 Dose: 0.5 mg Promethazine HCl 12.5 mg/ (Sodium Chloride) 50.5 mls @ 100 mls/hr IV Q6H PRN PRN Reason: Nausea/Vomiting Sodium Chloride (Normal Saline) 1,000 mls @ 125 mls/hr IV ASDIRECTED [facility] Last Admin: 02/05/18 04:57 Dose: 125 mls/hr Meropenem 500 mg/ Sodium (Chloride) 100 mls @ 200 mls/hr IV Q8H [facility] Last Admin: 02/05/18 04:15 Dose: 200 mls/hr Lorazepam (Ativan) 1 mg IV Q6H PRN PRN Reason: Anxiety Magnesium Sulfate (Pharmacy To Dose - Magnesium Replacement) 1 dose .XX ASDIRECTED [facility] Metoprolol Tartrate (Lopressor) 5 mg IVPUSH Q4H PRN PRN Reason: Tachycardia Miscellaneous Information (Remove Patch) 1 ea TRDERM DAILY [facility] Last Admin: 02/04/18 09:12 Dose: Not Given Nicotine (Habitrol) 21 mg TRDERM DAILY PRN PRN Reason: Nicotine Dependence Ondansetron HCl (Zofran) 4 mg IV Q6H PRN PRN Reason: Nausea/Vomiting Last Admin: 02/04/18 18:56 Dose: 4 mg Polyethylene Glycol (Miralax) 17 gm PO DAILY PRN PRN Reason: Constipation Last Admin: 02/04/18 08:28 Dose: 17 gm Potassium Chloride (Pharmacy To Dose - Potassium Replacement) 1 dose .XX ASDIRECTED [facility] Saccharomyces Boulardii (Florastor) 250 mg PO DAILY [facility] Last Admin: 02/04/18 08:30 Dose: 250 mg Senna/Docusate Sodium (Senna Plus) 1 tab PO BID PRN PRN Reason: Constipation Last Admin: 02/04/18 20:25 Dose: 1 tab Temazepam (Restoril) 15 mg PO BEDTIME PRN PRN Reason: Sleep Discontinued Medications Bisacodyl (Dulcolax) 10 mg RECTAL ONETIME ONE Stop: 02/03/18 13:53 Last Admin: 02/03/18 14:45 Dose: 10 mg Diphenhydramine HCl (Benadryl) 25 mg IVPUSH ONETIME ONE Stop: 02/03/18 12:40 Last Admin: 02/03/18 12:57 Dose: 25 mg Famotidine (Pepcid) 20 mg IVPUSH BID [facility] Stop: 02/04/18 09:01 Last Admin: 02/04/18 08:31 Dose: 20 mg Famotidine (Pepcid) 20 mg IVPUSH ONETIME ONE Stop: 02/03/18 12:40 Last Admin: 02/03/18 12:58 Dose: 20 mg Hydromorphone HCl (Dilaudid) 0.5 mg IVPUSH Q2H PRN PRN Reason: Pain (severe 7-10) Levofloxacin/Dextrose 500 mg/ (Premix) 100 mls @ 100 mls/hr IV Q24H [facility] Last Admin: 02/03/18 12:27 Dose: 100 mls/hr Methylprednisolone Sodium Succinate (Solu-Medrol) 40 mg IVPUSH BID [facility] Stop: 02/03/18 21:01 Last Admin: 02/03/18 21:08 Dose: 40 mg - Exam Quality Assessment: DVT Prophylaxis General: Alert, Oriented, Cooperative, No Acute Distress HEENT: Pupils Equal, Pupils Reactive, EOMI, Mucous Membr. Moist/[place] Neck: Supple, Trachea Midline, No JVD Lungs: Clear to Auscultation, Normal Respiratory Effort Cardiovascular: Regular Rate, Regular Rhythm GI/Abdominal Exam: Normal Bowel Sounds, Soft, Non-Tender, No Organomegaly, No Distention, No Abnormal Bruit, No Mass, Pelvis Stable (Female) Exam: Deferred Back Exam: Normal Inspection, Full Range of Motion, CVA Tenderness (L) ( improving ). No: CVA Tenderness (R) Extremities: Normal Inspection, Normal Range of Motion, Non-Tender, No Pedal Edema, Normal Capillary Refill Peripheral Pulses: 2+: Radial (L), Radial (R), Dorsalis Pedis (L), Dorsalis Pedis (R) Skin: Warm, Dry, Intact Neurological: No New Focal Deficit Psy/Mental Status: Alert, Normal Affect, Normal Mood - Problem List & Annotations (1) Bacteremia SNOMED Code(s): 6656186 Code(s): R78.81 - BACTEREMIA Status: Acute Priority: High Current Visit : Yes (2) Pyelonephritis SNOMED Code(s): 68038041 Code(s): N12 - TUBULO-INTERSTITIAL NEPHRITIS, NOT SPCF ACUTE OR CHRONIC Status: Acute Priority: High Current Visit: Yes (3) UTI (urinary tract infection) SNOMED Code(s): 88124331 Code(s): N39.0 - URINARY TRACT INFECTION, SITE NOT SPECIFIED Status: Acute Priority: High Current Visit: Yes Qualifiers: Urinary tract infection type: acute cystitis Hematuria presence: without hematuria Qualified Code(s): N30.00 - Acute cystitis without hematuria - Problem List Review Problem List Initiated/Reviewed/Updated: Yes - My Orders Last 24 Hours: My Active Orders 02/05/18 05:30 CULTURE BLOOD [BC] Routine - Plan Plan:: Assessment/Plan: Acute: Bacteremia - 2/2 E. Coli form Pyelonephritis - [place]-sensitive - Carries a hx/o UTI 2 years after with her daughter - She denies hx/o recurrent UTI or STIs - Her symptom started 4 days ago; last sexual contact was 5 days ago - She was seen in ED yesterday and was discharged with Keflex - Still did not feel good so she came back to ED for further eval - Her blood culture drawn yesterday came back pos for E. Coli, [place]-sensitive - IV Levaquin 500 mg Daily first dose now with probiotic -> stop levaquin, switch to Meropenem -> stop - Start IV Rocephin today based on c/s - Repeat blood culture today Pyelonephritis 2/2 GNR - E. coli - [place] sensitive - Developed after sexual encounter; possible partner was not clean - Started levaquin -> developed reaction; start meropenem ->stop - Start Rocephin today based on c/s Levaquin associated hypersensitivity reaction - Developed after receiving dose of Levaquin - Given H1B, H2B, and steroids with good response - Will stop Levaquin and start meropenem-> add Levaquin to adverse reaction list. Chronic: Hx/o H. pylori infection chronic back pain history of sickle cell trait history of obesity Plan: Admit to [facility] with Tele Hold Home Oral Abx Routine AM Labs GI/DVT PPx: H2B and Lovenox SubQ SW/CM for d/c planning Code status: Full Code; PCP: None Likely discharge 02/07/19 pending continued negative blood cultures
[2018-02-05] MEDS: Enoxaparin 40 MG/0.4 ML Syringe SUBCUT SCH (08:20)
[2018-02-05] MEDS: Saccharomyces Boulardii (Probiotic) 250 MG Cap PO SCH (08:20)
[2018-02-05] MEDS: cefTRIAXone 2 GM in Sodium Chloride 0.9% 100 ML IV SCH (11:39)
--- NOTE | 2018-02-06 06:23 | PCM.PN ---
- General Info Date of Service: 02/06/18 Admission Dx/Problem (Free Text): Admission Diagnosis/Problem Admission Diagnosis/Problem Pyelonephritis Functional Status: Reports: Pain Controlled, Tolerating Diet, Ambulating, Urinating. Denies: New Symptoms - Review of Systems General: Reports: No Symptoms. Denies: Fever, Weakness, Fatigue, Malaise HEENT: Reports: No Symptoms Pulmonary: Reports: No Symptoms. Denies: Shortness of Breath, Pleuritic Chest Pain, Cough, Sputum Cardiovascular: Reports: Dyspnea on Exertion (improved ) Gastrointestinal: Reports: No Symptoms. Denies: Abdominal Pain, Constipation, Diarrhea, Nausea, Vomiting Genitourinary: Reports: No Symptoms Musculoskeletal: Denies: Back Pain Skin: Reports: No Symptoms Neurological: Reports: No Symptoms Psychiatric: Reports: No Symptoms - Patient Data Vitals - Most Recent: Last Vital Signs Temp 98.1 F 02/06/18 05:15 Pulse 64 02/06/18 05:15 Resp 16 02/06/18 05:15 BP 110/82 02/06/18 05:15 Pulse Ox 99 02/06/18 05:15 Weight - Most Recent: 226 lb I&O - Last 24 Hours: Intake & Output 02/05/18 02/05/18 02/06/18 14:59 22:59 06:59 Intake Total 120 2270 2800 Output Total 1000 Balance 120 1270 2800 Lab Results Last 24 Hours: Laboratory Results - last 24 hr 02/05/18 Range/Units 05:30 Sodium 144 (136-145) mEq/L Potassium 3.6 (3.5-5.1) mEq/L Chloride 110 H (98-107) mEq/L Carbon Dioxide 27 (21-32) mEq/L Anion Gap 10.6 (5-15) BUN 11 (7-18) mg/dL Creatinine 0.9 (0.55-1.02) mg/dL Est Cr Clr Drug Dosing 109.78 mL/min Estimated GFR (MDRD) > 60 (>60) mL/min BUN/Creatinine Ratio 12.2 L (14-18) Glucose 86 (74-106) mg/dL Calcium 8.0 L (8.5-10.1) mg/dL Magnesium 1.8 (1.8-2.4) mg/dl C-Reactive Protein 8.1 H* (<1.0) mg/dL Tien Results Last 24 Hours: Microbiology 02/05/18 05:30 Aerobic Blood Culture - Preliminary Blood NO GROWTH AFTER 1 DAY Anaerobic Blood Culture - Preliminary NO GROWTH AFTER 1 DAY Med Orders - Current: Current Medications Acetaminophen (Tylenol) 650 mg PO Q4H PRN PRN Reason: Pain (Mild 1-3)/fever Hydrocodone Bitart/Acetaminophen ([place] 325-5 Mg) 1 tab PO Q4H PRN PRN Reason: Pain (moderate 4-6) Last Admin: 02/05/18 20:40 Dose: 1 tab Albuterol/Ipratropium (Duoneb 3.0-0.5 Mg/3 Ml) 3 ml NEB Q4H PRN PRN Reason: Shortness Of Breath/wheezing Bisacodyl (Dulcolax) 5 mg PO DAILY PRN PRN Reason: Constipation Last Admin: 02/04/18 20:25 Dose: 5 mg Docusate Sodium (Colace) 100 mg PO BID PRN PRN Reason: Constipation Last Admin: 02/04/18 20:25 Dose: 100 mg Enoxaparin Sodium (Lovenox) 40 mg SUBCUT DAILY [facility] Last Admin: 02/05/18 08:20 Dose: 40 mg Hydralazine HCl (Apresoline) 20 mg IVPUSH Q4H PRN PRN Reason: Hypertension Hydromorphone HCl (Dilaudid) 0.5 mg IVPUSH Q2H PRN PRN Reason: Pain (severe 7-10) Last Admin: 02/04/18 18:56 Dose: 0.5 mg Promethazine HCl 12.5 mg/ (Sodium Chloride) 50.5 mls @ 100 mls/hr IV Q6H PRN PRN Reason: Nausea/Vomiting Ceftriaxone Sodium 2 gm/ (Sodium Chloride) 100 mls @ 200 mls/hr IV Q24H [facility] Last Admin: 02/05/18 11:39 Dose: 200 mls/hr Lorazepam (Ativan) 1 mg IV Q6H PRN PRN Reason: Anxiety Magnesium Sulfate (Pharmacy To Dose - Magnesium Replacement) 1 dose .XX ASDIRECTED [facility] Metoprolol Tartrate (Lopressor) 5 mg IVPUSH Q4H PRN PRN Reason: Tachycardia Miscellaneous Information (Remove Patch) 1 ea TRDERM DAILY [facility] Last Admin: 02/05/18 08:22 Dose: Not Given Nicotine (Habitrol) 21 mg TRDERM DAILY PRN PRN Reason: Nicotine Dependence Ondansetron HCl (Zofran) 4 mg IV Q6H PRN PRN Reason: Nausea/Vomiting Last Admin: 02/04/18 18:56 Dose: 4 mg Polyethylene Glycol (Miralax) 17 gm PO DAILY PRN PRN Reason: Constipation Last Admin: 02/04/18 08:28 Dose: 17 gm Potassium Chloride (Pharmacy To Dose - Potassium Replacement) 1 dose .XX ASDIRECTED [facility] Saccharomyces Boulardii (Florastor) 250 mg PO DAILY [facility] Last Admin: 02/05/18 08:20 Dose: 250 mg Senna/Docusate Sodium (Senna Plus) 1 tab PO BID PRN PRN Reason: Constipation Last Admin: 02/04/18 20:25 Dose: 1 tab Temazepam (Restoril) 15 mg PO BEDTIME PRN PRN Reason: Sleep Discontinued Medications Bisacodyl (Dulcolax) 10 mg RECTAL ONETIME ONE Stop: 02/03/18 13:53 Last Admin: 02/03/18 14:45 Dose: 10 mg Diphenhydramine HCl (Benadryl) 25 mg IVPUSH ONETIME ONE Stop: 02/03/18 12:40 Last Admin: 02/03/18 12:57 Dose: 25 mg Famotidine (Pepcid) 20 mg IVPUSH BID [facility] Stop: 02/04/18 09:01 Last Admin: 02/04/18 08:31 Dose: 20 mg Famotidine (Pepcid) 20 mg IVPUSH ONETIME ONE Stop: 02/03/18 12:40 Last Admin: 02/03/18 12:58 Dose: 20 mg Hydromorphone HCl (Dilaudid) 0.5 mg IVPUSH Q2H PRN PRN Reason: Pain (severe 7-10) Sodium Chloride (Normal Saline) 1,000 mls @ 125 mls/hr IV ASDIRECTED [facility] Last Admin: 02/05/18 04:57 Dose: 125 mls/hr Levofloxacin/Dextrose 500 mg/ (Premix) 100 mls @ 100 mls/hr IV Q24H [facility] Last Admin: 02/03/18 12:27 Dose: 100 mls/hr Meropenem 500 mg/ Sodium (Chloride) 100 mls @ 200 mls/hr IV Q8H [facility] Last Admin: 02/05/18 04:15 Dose: 200 mls/hr Methylprednisolone Sodium Succinate (Solu-Medrol) 40 mg IVPUSH BID [facility] Stop: 02/03/18 21:01 Last Admin: 02/03/18 21:08 Dose: 40 mg - Exam Quality Assessment: DVT Prophylaxis General: Alert, Oriented, Cooperative, No Acute Distress HEENT: Pupils Equal, Pupils Reactive, EOMI, Mucous Membr. Moist/[place] Neck: Supple, Trachea Midline, No JVD Lungs: Clear to Auscultation, Normal Respiratory Effort Cardiovascular: Regular Rate, Regular Rhythm GI/Abdominal Exam: Normal Bowel Sounds, Soft, Non-Tender, No Distention, No Abnormal Bruit (Female) Exam: Deferred Back Exam: Normal Inspection, Full Range of Motion. No: CVA Tenderness (L), CVA Tenderness (R) Extremities: Normal Inspection, Normal Range of Motion, Non-Tender, No Pedal Edema, Normal Capillary Refill Peripheral Pulses: 2+: Radial (L), Radial (R), Dorsalis Pedis (L), Dorsalis Pedis (R) Skin: Warm, Dry, Intact Neurological: No New Focal Deficit Psy/Mental Status: Alert, Normal Affect, Normal Mood - Problem List & Annotations (1) Bacteremia SNOMED Code(s): 6240524 Code(s): R78.81 - BACTEREMIA Status: Acute Priority: High Current Visit : Yes (2) Pyelonephritis SNOMED Code(s): 28219808 Code(s): N12 - TUBULO-INTERSTITIAL NEPHRITIS, NOT SPCF ACUTE OR CHRONIC Status: Acute Priority: High Current Visit: Yes (3) UTI (urinary tract infection) SNOMED Code(s): 02945147 Code(s): N39.0 - URINARY TRACT INFECTION, SITE NOT SPECIFIED Status: Acute Priority: High Current Visit: Yes Qualifiers: Urinary tract infection type: acute cystitis Hematuria presence: without hematuria Qualified Code(s): N30.00 - Acute cystitis without hematuria - Problem List Review Problem List Initiated/Reviewed/Updated: Yes - My Orders Last 24 Hours: My Active Orders 02/05/18 05:30 CULTURE BLOOD [BC] Routine 02/05/18 11:00 cefTRIAXone [Rocephin] 2 gm Sodium Chloride 0.9% [Normal Saline] 100 ml IV Q24H - Plan Plan:: Assessment/Plan: Acute: Bacteremia - 2/2 E. Coli form Pyelonephritis - machado-sensitive - Carries a hx/o UTI 2 years after with her daughter - She denies hx/o recurrent UTI or STIs - Her symptom started 4 days ago; last sexual contact was 5 days ago - She was seen in ED yesterday and was discharged with Keflex - Still did not feel good so she came back to ED for further eval - Her blood culture drawn yesterday came back pos for E. Coli, machado-sensitive - IV Levaquin 500 mg Daily first dose now with probiotic -> stop levaquin, switch to Meropenem -> stop - Start IV Rocephin based on c/s - Repeat blood culture - negative after one day Pyelonephritis 2/2 GNR - E. coli - mach[place] sensitive - Developed after sexual encounter; possible partner was not clean - Started levaquin -> developed reaction; start meropenem ->stop - Start Rocephin based on c/s Resolved: Levaquin associated hypersensitivity reaction - Developed after receiving dose of Levaquin - Given H1B, H2B, and steroids with good response - Will stop Levaquin and start meropenem-> add Levaquin to adverse reaction list. Chronic: Hx/o H. pylori infection chronic back pain history of sickle cell trait history of obesity Plan: Admit to [facility] with Tele Hold Home Oral Abx Routine AM Labs GI/DVT PPx: H2B and Lovenox SubQ SW/CM for d/c planning Code status: Full Code; PCP: None Likely discharge 02/07/19 pending continued negative blood cultures
[2018-02-06] MEDS: Acetaminophen/HYDROcodone 325-5 MG Tab PO PRN ×3 (06:43→19:43)
[2018-02-06] MEDS: Saccharomyces Boulardii (Probiotic) 250 MG Cap PO SCH (08:46)
[2018-02-06] MEDS: Enoxaparin 40 MG/0.4 ML Syringe SUBCUT SCH (08:46)
[2018-02-06] MEDS: cefTRIAXone 2 GM in Sodium Chloride 0.9% 100 ML IV SCH (11:11)
--- NOTE | 2018-02-07 06:18 | PCM.DCSUM1 ---
Discharge Summary - Hospital Course HPI Initial Comments: This is a 27 yo female with past medical hx/o H. pylori infection, chronic back pain, history of sickle cell trait, and history of obesity who comes seen for inpatient treatment of Bacteremia. She was initially seen yesterday at the emergency department for multiple complaints of fever, chills, body aches, and dysuria for 2 days and was diagnosed with pyelonephritis. She was discharged home with oral antibiotic. Unfortunately, she did not do well. Her urine and blood culture both came back positive for gram-negative mikael. Patient was called back from ED for inpatient treatment and she agreed to come in for medical management of bactermeia from pyelonephritis. She is full code. Diagnosis: Stroke: No - Discharge Data Discharge Date: 02/07/18 (Admit date: 02/03/18) Discharge Disposition: Home, Self-Care 01 Condition: Good - Discharge Diagnosis/Problem(s) (1) Bacteremia SNOMED Code(s): 8800413 ICD Code: R78.81 - BACTEREMIA Status: Acute Priority: High Current Visit: Yes (2) Pyelonephritis SNOMED Code(s): 97875744 ICD Code: N12 - TUBULO-INTERSTITIAL NEPHRITIS, NOT SPCF ACUTE OR CHRONIC Status: Acute Priority: High Current Visit: Yes (3) UTI (urinary tract infection) SNOMED Code(s): 56124559 ICD Code: N39.0 - URINARY TRACT INFECTION, SITE NOT SPECIFIED Status: Acute Priority: High Current Visit: Yes Qualifiers: Urinary tract infection type: acute cystitis Hematuria presence: without hematuria Qualified Code(s): N30.00 - Acute cystitis without hematuria - Patient Summary/Data Consults: Consultations 02/03/18 12:00 Consult to Case Management [CONS] Routine Consult to Inspector Conveyor Line [CONS] Routine Labs Pending at D/C: None Recommended Follow-up Testing/Procedures: Follow-up with a primary care provider within 10-14 days of discharge, sooner if needed. Hospital Course: Assessment/Plan: Acute: Bacteremia - 2/2 E. Coli form Pyelonephritis - machado-sensitive - Carries a hx/o UTI 2 years after with her daughter - She denies hx/o recurrent UTI or STIs - Her symptom started 4 days ago; last sexual contact was 5 days ago - She was seen in ED yesterday and was discharged with Keflex - Still did not feel good so she came back to ED for further eval - Her blood culture drawn yesterday came back pos for E. Coli, machado-sensitive - IV Levaquin 500 mg Daily first dose now with probiotic -> stop levaquin, switch to Meropenem -> stop - Start IV Rocephin based on c/s - Repeat blood culture - negative after 48 hrs Pyelonephritis 2/2 GNR - E. coli - mach[place] sensitive - Developed after sexual encounter; possible partner was not clean - Started levaquin -> developed reaction; start meropenem ->stop - Start Rocephin based on c/s Resolved: Levaquin associated hypersensitivity reaction - Developed after receiving dose of Levaquin - Given H1B, H2B, and steroids with good response - Will stop Levaquin and start meropenem-> add Levaquin to adverse reaction list. Chronic: Hx/o H. pylori infection chronic back pain history of sickle cell trait history of obesity Plan: Admit to [facility] with Tele Hold Home Oral Abx Routine AM Labs GI/DVT PPx: H2B and Lovenox SubQ SW/CM for d/c planning Code status: Full Code; PCP: None Overall Carlos did very well. As noted above she was called back after being seen in the ED and later having positive blood cultures. She was started on levaquin and unfortunately had a hypersensitivity reaction to it. This was stopped and she was treated for the reaction. She was switched to meropenem. Urine and blood cultures came back and it was found she was growing E. Coli which was machado-sensitive. She was switched to rocephin and will be discharged on keflex. She was given 10 days of TID 500mg Keflex in the ED and states she only took 2 pills. She should continue this prescription until it is complete. She was also sent a prescription for 30 days of probiotic. She was instructed to seek medical care should symptoms return. We discussed her smoking status. She has not smoked while here and has refused nicotine patches. She refused tobacco cessation products on discharge. She was given contact information for [place] quits , the [place] quit line, and our local health unit tobacco cessation program. She was instructed to follow-up with her PCP as another resource. She does not have a PCP and needs to establish. She was instructed to follow-up with a PCP within 10-14 days of discharge. - Patient Instructions Diet: Usual Diet as Tolerated Activity: As Tolerated Notify Provider of: Fever, Increased Pain, Nausea and/or Vomiting Other/Special Instructions: -Follow-up with a primary care porvider within 10- 14 days of discharge. -You were taking Keflex 500mg three times a day. This was prescribed to you from the Emergency Room. You should continue taking this until it is all out. Even if you feel better be sure to take all the medicaitons. -We discussed smoking cessation. Smoking is bad for your overall health, which you are aware of. You refused nicotine patches while here and do not want any for discharge home. Should you change your mind the [place] Quit Line at or TDD [phone] and [place] Quits at [phone] are excellent resources for you. They can give you free medicatoins to quit. Another good resource is the local [facility] Tobacco Prevention and Control Program at [phone]. Your primary care provider can be a great resource as well. -Should you notice a fever, pain with urination, or symptoms like what you had prior, contact your primary care provider, see a walk-in clinic, or return to the emergency room. -May return to work 02/08/18 - Discharge Plan *PRESCRIPTION DRUG MONITORING PROGRAM REVIEWED*: No *COPY OF PRESCRIPTION DRUG MONITORING REPORT IN PATIENT LEAH: No Prescriptions/Med Rec: Saccharomyces Boulardii [Florastor] 250 mg PO DAILY #30 cap Home Medications: Home Meds Cephalexin [Keflex] 500 mg PO TID #30 capsule 02/02/18 [Rx] Saccharomyces Boulardii [Florastor] 250 mg PO DAILY #30 cap 02/07/18 [Rx] Patient Handouts: Pyelonephritis, Adult, [id number], Urinary Tract Infection , Adult, [id number], Bacteremia, Steps to Quit Smoking Forms: ED Department Discharge Referrals: PCP,None [Primary Care Provider] - - Discharge Summary/Plan Comment DC Time >30 min.: Yes (45 mins) - General Info Date of Service: 02/07/18 Admission Dx/Problem (Free Text: Admission Diagnosis/Problem Admission Diagnosis/Problem Pyelonephritis Subjective Update: In to see [facility]. She is doing well. She had a BM yesterday and reports she feels great today. She is excited to be discharged. No concerns from patient or nursing. Blood cultures remained negative after 48 hours. She will be discharged today. Functional Status: Reports: Pain Controlled, Tolerating Diet, Ambulating, Urinating. Denies: New Symptoms - Review of Systems General: Reports: No Symptoms. Denies: Fever, Weakness, Fatigue, Malaise HEENT: Reports: No Symptoms. Denies: Sore Throat Pulmonary: Reports: No Symptoms. Denies: Shortness of Breath, Cough, Sputum, Wheezing Cardiovascular: Reports: No Symptoms. Denies: Chest Pain, Palpitations Gastrointestinal: Reports: No Symptoms. Denies: Abdominal Pain, Constipation, Diarrhea, Nausea, Vomiting Genitourinary: Reports: No Symptoms. Denies: Dysuria, Frequency, Burning, Pain , Urgency Musculoskeletal: Reports: No Symptoms Skin: Reports: No Symptoms Neurological: Reports: No Symptoms. Denies: Confusion, Difficulty Walking, Gait Disturbance Psychiatric: Reports: No Symptoms - Patient Data Vitals - Most Recent: Last Vital Signs Temp 97.9 F 02/07/18 02:37 Pulse 58 L 02/07/18 02:37 Resp 18 02/07/18 02:37 BP 105/69 02/07/18 02:37 Pulse Ox 99 02/07/18 02:37 Weight - Most Recent: 229 lb 9.6 oz I&O - Last 24 hours: Intake & Output 02/06/18 02/06/18 02/07/18 14:59 22:59 06:59 Intake Total 281 860 9265 Balance 976 264 2485 Lab Results - Last 24 hrs: Laboratory Results - last 24 hr 02/06/18 02/06/18 02/07/18 Range/Units 06:00 06:00 05:03 WBC 6.81 7.43 (3.98-10.04) K/mm3 RBC 4.22 4.50 (3.98-5.22) M/mm3 Hgb 11.4 12.4 (11.2-15.7) gm/L Hct 34.7 36.6 (34.1-44.9) % MCV 82.2 81.3 (79.4-94.8) fl MCH 27.0 27.6 (25.6-32.2) pg MCHC 32.9 33.9 (32.2-35.5) g/dl RDW Std Deviation 40.4 39.5 (36.4-46.3) fL Plt Count 371 H 386 H (182-369) K/mm3 MPV 10.1 9.5 (9.4-12.3) fl Neut % (Auto) 44.8 46.3 (34.0-71.1) % Lymph % (Auto) 39.6 40.0 (19.3-51.7) % Vance % (Auto) 12.8 H 10.2 (4.7-12.5) % Eos % (Auto) 1.8 2.7 (0.7-5.8) Baso % (Auto) 0.9 0.5 (0.1-1.2) % Neut # (Auto) 3.05 3.44 (1.56-6.13) K/mm3 Lymph # (Auto) 2.70 2.97 (1.18-3.74) K/mm3 Vance # (Auto) 0.87 H 0.76 H (0.24-0.36) K/mm3 Eos # (Auto) 0.12 0.20 (0.04-0.36) K/mm3 Baso # (Auto) 0.06 0.04 (0.01-0.08) K/mm3 Manual Slide Review Normal smear Sodium 141 (136-145) mEq/L Potassium 3.7 (3.5-5.1) mEq/L Chloride 105 (98-107) mEq/L Carbon Dioxide 30 (21-32) mEq/L Anion Gap 9.7 (5-15) BUN 9 (7-18) mg/dL Creatinine 0.9 (0.55-1.02) mg/dL Est Cr Clr Drug Dosing 109.78 mL/min Estimated GFR (MDRD) > 60 (>60) mL/min BUN/Creatinine Ratio 10.0 L (14-18) Glucose 83 (74-106) mg/dL Calcium 9.0 (8.5-10.1) mg/dL Magnesium 2.1 (1.8-2.4) mg/dl C-Reactive Protein 8.0 H* (<1.0) mg/dL [facility] Results - Last 24 hrs: Microbiology 02/05/18 05:30 Aerobic Blood Culture - Preliminary Blood NO GROWTH AFTER 2 DAYS Anaerobic Blood Culture - Preliminary NO GROWTH AFTER 2 DAYS Med Orders - Current: Current Medications Acetaminophen (Tylenol) 650 mg PO Q4H PRN PRN Reason: Pain (Mild 1-3)/fever Hydrocodone Bitart/Acetaminophen ([place] 325-5 Mg) 1 tab PO Q4H PRN PRN Reason: Pain (moderate 4-6) Last Admin: 02/06/18 19:43 Dose: 1 tab Albuterol/Ipratropium (Duoneb 3.0-0.5 Mg/3 Ml) 3 ml NEB Q4H PRN PRN Reason: Shortness Of Breath/wheezing Bisacodyl (Dulcolax) 5 mg PO DAILY PRN PRN Reason: Constipation Last Admin: 02/04/18 20:25 Dose: 5 mg Docusate Sodium (Colace) 100 mg PO BID PRN PRN Reason: Constipation Last Admin: 02/04/18 20:25 Dose: 100 mg Enoxaparin Sodium (Lovenox) 40 mg SUBCUT DAILY [facility] Last Admin: 02/06/18 08:46 Dose: 40 mg Hydralazine HCl (Apresoline) 20 mg IVPUSH Q4H PRN PRN Reason: Hypertension Hydromorphone HCl (Dilaudid) 0.5 mg IVPUSH Q2H PRN PRN Reason: Pain (severe 7-10) Last Admin: 02/04/18 18:56 Dose: 0.5 mg Promethazine HCl 12.5 mg/ (Sodium Chloride) 50.5 mls @ 100 mls/hr IV Q6H PRN PRN Reason: Nausea/Vomiting Ceftriaxone Sodium 2 gm/ (Sodium Chloride) 100 mls @ 200 mls/hr IV Q24H [facility] Last Admin: 02/06/18 11:11 Dose: 200 mls/hr Lorazepam (Ativan) 1 mg IV Q6H PRN PRN Reason: Anxiety Magnesium Sulfate (Pharmacy To Dose - Magnesium Replacement) 1 dose .XX ASDIRECTED [facility] Metoprolol Tartrate (Lopressor) 5 mg IVPUSH Q4H PRN PRN Reason: Tachycardia Miscellaneous Information (Remove Patch) 1 ea TRDERM DAILY [facility] Last Admin: 02/06/18 08:50 Dose: Not Given Nicotine (Habitrol) 21 mg TRDERM DAILY PRN PRN Reason: Nicotine Dependence Ondansetron HCl (Zofran) 4 mg IV Q6H PRN PRN Reason: Nausea/Vomiting Last Admin: 02/04/18 18:56 Dose: 4 mg Polyethylene Glycol (Miralax) 17 gm PO DAILY PRN PRN Reason: Constipation Last Admin: 02/04/18 08:28 Dose: 17 gm Potassium Chloride (Pharmacy To Dose - Potassium Replacement) 1 dose .XX ASDIRECTED [facility] Saccharomyces Boulardii (Florastor) 250 mg PO DAILY [facility] Last Admin: 02/06/18 08:46 Dose: 250 mg Senna/Docusate Sodium (Senna Plus) 1 tab PO BID PRN PRN Reason: Constipation Last Admin: 02/04/18 20:25 Dose: 1 tab Temazepam (Restoril) 15 mg PO BEDTIME PRN PRN Reason: Sleep Discontinued Medications Bisacodyl (Dulcolax) 10 mg RECTAL ONETIME ONE Stop: 02/03/18 13:53 Last Admin: 02/03/18 14:45 Dose: 10 mg Diphenhydramine HCl (Benadryl) 25 mg IVPUSH ONETIME ONE Stop: 02/03/18 12:40 Last Admin: 02/03/18 12:57 Dose: 25 mg Famotidine (Pepcid) 20 mg IVPUSH BID [facility] Stop: 02/04/18 09:01 Last Admin: 02/04/18 08:31 Dose: 20 mg Famotidine (Pepcid) 20 mg IVPUSH ONETIME ONE Stop: 02/03/18 12:40 Last Admin: 02/03/18 12:58 Dose: 20 mg Hydromorphone HCl (Dilaudid) 0.5 mg IVPUSH Q2H PRN PRN Reason: Pain (severe 7-10) Sodium Chloride (Normal Saline) 1,000 mls @ 125 mls/hr IV ASDIRECTED [facility] Last Admin: 02/05/18 04:57 Dose: 125 mls/hr Levofloxacin/Dextrose 500 mg/ (Premix) 100 mls @ 100 mls/hr IV Q24H [facility] Last Admin: 02/03/18 12:27 Dose: 100 mls/hr Meropenem 500 mg/ Sodium (Chloride) 100 mls @ 200 mls/hr IV Q8H [facility] Last Admin: 02/05/18 04:15 Dose: 200 mls/hr Methylprednisolone Sodium Succinate (Solu-Medrol) 40 mg IVPUSH BID [facility] Stop: 02/03/18 21:01 Last Admin: 02/03/18 21:08 Dose: 40 mg - Exam Quality Assessment: Reports: DVT Prophylaxis General: Reports: Alert, Oriented, Cooperative, No Acute Distress HEENT: Reports: Pupils Equal, Pupils Reactive, EOMI, Mucous Membr. Moist/[place] Neck: Reports: Supple, Trachea Midline, No JVD Lungs: Reports: Clear to Auscultation, Normal Respiratory Effort Cardiovascular: Reports: Regular Rate, Regular Rhythm GI/Abdominal Exam: Normal Bowel Sounds, Soft, Non-Tender, No Organomegaly, No Distention, No Abnormal Bruit, No Mass, Pelvis Stable (Female) Exam: Deferred Rectal (Female) Exam: Deferred Back Exam: Reports: Normal Inspection, Full Range of Motion. Denies: CVA Tenderness (L), CVA Tenderness (R) Extremities: Normal Inspection, Normal Range of Motion, Non-Tender, No Pedal Edema, Normal Capillary Refill Skin: Reports: Warm, Dry, Intact Neurological: Reports: No New Focal Deficit Psy/Mental Status: Reports: Alert, Normal Affect, Normal Mood
[2018-02-07 08:39] VITALS: BP 124/88
[2018-02-07] MEDS: Saccharomyces Boulardii (Probiotic) 250 MG Cap PO SCH (09:23)
[2018-02-07] MEDS: Enoxaparin 40 MG/0.4 ML Syringe SUBCUT SCH (09:23)
== END 2018-02-07 09:46 | disposition home or self-care (01) | DRG 690 ==
LOC: JD.ED 10:54 → JD.MS 11:20
PROVIDERS: ADMIT Emergency Medicine; ATTEND Internal Medicine
DX: N12 Tubulo-interstitial nephritis, not specified as acute or chronic (principal); R78.81 Bacteremia; B96.20 Unspecified Escherichia coli [E. coli] as the cause of diseases classified elsewhere; G89.29 Other chronic pain; M54.9 Dorsalgia, unspecified; D57.3 Sickle-cell trait; Z88.1 Allergy status to other antibiotic agents; Z87.440 Personal history of urinary (tract) infections; Z98.891 History of uterine scar from previous surgery; F17.200 Nicotine dependence, unspecified, uncomplicated
CPT/HCPCS: 36415; 80048; 83735; 85025; 86140; 87040; A9270-GY; J0696; J1170; J1200; J1650; J1956; J2185; J2405; J2920; J3490; J7030; J7040